=== PATIENT | male | born 1950 | race Caucasian/White ===

== ENCOUNTER → 2025-07-07 | Outpatient (CLI) | payer MEDICARE, OTHER | LOC: M SLEEP HO 11:37 | PROVIDERS: ATTEND Physician Assistant | DX: I27.81 Cor pulmonale (chronic) (principal) ==

== ENCOUNTER → 2025-08-21 | Outpatient (CLI) | payer MEDICARE, OTHER | LOC: M SLEEP 20:00 | PROVIDERS: ATTEND Physician Assistant | DX: G47.33 Obstructive sleep apnea (adult) (pediatric) (principal) ==

== ENCOUNTER → 2025-08-25 | Outpatient (CLI) | payer MEDICARE, OTHER | LOC: M PLAIMG 10:17 | PROVIDERS: ATTEND Physician Assistant | DX: I08.1 Rheumatic disorders of both mitral and tricuspid valves (principal); I27.81 Cor pulmonale (chronic) ==

== ENCOUNTER → 2025-09-16 | Outpatient (CLI) | payer MEDICARE, OTHER | LOC: M SLEEP 20:00 | PROVIDERS: ATTEND Physician Assistant | DX: G47.33 Obstructive sleep apnea (adult) (pediatric) (principal) ==